=== PATIENT | female | born 1935 | race Caucasian/White ===

== ENCOUNTER 2020-07-19 14:20 | Inpatient (IN) | payer MEDICARE ==
[~2020-07-19] VITALS: Ht 162.6 cm; Wt 54.7 kg
--- NOTE | 2020-07-19 15:10 | RAD ---
XR CHEST 1V History: Reason: chest pain / Spl. Instructions: / History: Comparison: None. Findings: Hyperinflation. No consolidation or pleural effusion. Normal heart size. Impression: 1. No acute cardiopulmonary process. 2. Hyperinflation. Electronically signed by: Bruce Fam DO (07/19/2020 3:08 PM) [id number]
[2020-07-19 15:14] LABS: BASO # 0.1 x10^3/uL (0.0-0.2); BASO % 1 % (0-3); EOS % 0 % (0-3); HEMATOCRIT 46.4 % (36.0-47.0); HEMOGLOBIN 15.6 g/dL (12.0-15.5); LYMPH # 1.7 x10^3/uL (1.0-4.8); LYMPH % 22 % (24-48); MEAN CORPUSCULAR HEMOGLOBIN 32 pg (25-35); MEAN CORPUSCULAR HGB CONC 34 g/dL (31-37); MEAN CORPUSCULAR VOLUME 96 fL (79-100); MONO # 0.6 x10^3/uL (0.0-1.1); MONO % 8 % (0-9); NEUT # 5.2 x10^3/uL (1.8-7.7); NEUT % 68 % (31-73); PLATELET COUNT 172 x10^3/uL (140-400); RED BLOOD COUNT 4.84 x10^6/uL (3.50-5.40); RED CELL DISTRIBUTION WIDTH 12.8 % (11.5-14.5); WHITE BLOOD COUNT 7.7 x10^3/uL (4.0-11.0)
[2020-07-19 15:24] LABS: CALCIUM 9.8 mg/dL (8.5-10.1); GFR 52.4; POTASSIUM 3.9 mmol/L (3.5-5.1); PROTHROMBIN TIME PATIENT 13.2 SEC (11.7-14.0)
[2020-07-19 15:30] LABS: ALBUMIN 3.5 g/dL (3.4-5.0); DIRECT BILIRUBIN 0.1 mg/dL (0.0-0.2); TOTAL BILIRUBIN 0.7 mg/dL (0.2-1.0); TOTAL PROTEIN 7.5 g/dL (6.4-8.2)
--- NOTE | 2020-07-19 15:34 | PHYS DOC ---
Past Medical History Past Medical History: Dementia, Hypertension Alcohol Use: None Drug Use: None General Adult EDM: Chief Complaint: CHEST PAIN HPI: HPI: 85-year-old female presenting the [facility] today with chest pain. This all started about 48 hours ago. She is here with her daughter who is been taking care of her. Yesterday she was complaining of some chest pain intermittently that sharp nonradiating and moderate. Today she started having nausea with a few dry heaves and so her daughter was concerned so she called Paramedics who brought her in for evaluation. She is otherwise healthy other than having a mild history of hypertension. She does have dementia. Review of systems negative for abdominal pain, fevers chills headache nuchal rigidity. Positive for chest pain. Negative for shortness of breath lethargy cyanosis. Negative for dysuria or hematuria. All other review of systems negative. ED course: 85-year-old female presenting with chest pain. EKG obtained and reviewed by myself shows sinus rhythm with a regular rate. ST segments congruent. Not suggestive of acute ischemia. Blood work and chest x-ray ordered along with CT abdomen pelvis. Blood counts unremarkable. D-dimer was mildly elevated although adjusted for age D-dimer is within normal limits. CT abdomen pelvis shows a distended gallbladder. I spoke with Dr. Bryan who came and evaluated the patient. He will follow. Ultrasound ordered which shows gallstones. Chest x-ray unremarkable. We will admit the patient for serial t roponins and further monitoring of her gallstones and gallbladder. I spoke with Dr. Jose who accepts patient for admission. Heart Score: Risk Factors: Risk Factors: DM, Current or recent (<one month) smoker, HTN, HLP, family history of CAD, obesity. Risk Scores: Score 0 - 3: 2.5% MACE over next 6 weeks - Discharge Home Score 4 - 6: 20.3% MACE over next 6 weeks - Admit for Clinical Observation Score 7 - 10: 72.7% MACE over next 6 weeks - Early Invasive Strategies Allergies: Allergies: Allergies Coded Allergies Type Severity Reaction Last Updated Verified promethazine Adverse Reaction Intermediate 07/19/20 Yes Physical Exam: PE: Constitutional: Well developed, well nourished, no acute distress, non-toxic nguyen earance. [] HENT: Normocephalic, atraumatic, bilateral external ears normal, oropharynx moist, no oral exudates, nose normal. [] Eyes: PERRLA, EOMI, conjunctiva normal, no discharge. [] Neck: Normal range of motion, no tenderness, supple, no stridor. [] Cardiovascular:Heart rate regular rhythm, no murmur [] Lungs & Thorax: Bilateral breath sounds clear to auscultation [] Abdomen: Bowel sounds normal, soft, no tenderness, no masses, no pulsatile masses. [] Skin: Warm, dry, no erythema, no rash. [] Back: No tenderness, no CVA tenderness. [] Extremities: No tenderness, no cyanosis, no clubbing, ROM intact, no edema. [] Neurologic: Alert and oriented X 3, normal motor function, normal sensory function, no focal deficits noted. [] Psychologic: Affect normal, judgement normal, mood normal. [] Current Patient Data: Labs: Laboratory Tests Test 07/19/20 15:03 White Blood Count 7.7 x10^3/uL (4.0-11.0) Red Blood Count 4.84 x10^6/uL (3.50-5.40) Hemoglobin 15.6 g/dL (12.0-15.5) H Hematocrit 46.4 % (36.0-47.0) Mean Corpuscular Volume 96 fL (79-100) Mean Corpuscular Hemoglobin 32 pg (25-35) Mean Corpuscular Hemoglobin Concent 34 g/dL (31-37) Red Cell Distribution Width 12.8 % (11.5-14.5) Platelet Count 172 x10^3/uL (140-400) Neutrophils (%) (Auto) 68 % (31-73) Lymphocytes (%) (Auto) 22 % (24-48) L Monocytes (%) (Auto) 8 % (0-9) Eosinophils (%) (Auto) 0 % (0-3) Basophils (%) (Auto) 1 % (0-3) Neutrophils # (Auto) 5.2 x10^3/uL (1.8-7.7) Lymphocytes # (Auto) 1.7 x10^3/uL (1.0-4.8) Monocytes # (Auto) 0.6 x10^3/uL (0.0-1.1) Eosinophils # (Auto) 0.0 x10^3/uL (0.0-0.7) Basophils # (Auto) 0.1 x10^3/uL (0.0-0.2) Sodium Level 140 mmol/L (136-145) Potassium Level 3.9 mmol/L (3.5-5.1) Chloride Level 104 mmol/L (98-107) Carbon Dioxide Level 29 mmol/L (21-32) Anion Gap 7 (6-14) Blood Urea Nitrogen 16 mg/dL (7-20) Creatinine 1.0 mg/dL (0.6-1.0) Estimated GFR (Cockcroft-Gault) 52.4 Glucose Level 90 mg/dL (70-99) Calcium Level 9.8 mg/dL (8.5-10.1) Total Bilirubin Pending Direct Bilirubin Pending Aspartate Amino Transferase (AST) Pending Alanine Aminotransferase (ALT) Pending Alkaline Phosphatase Pending Total Protein Pending Albumin Pending Lipase Pending Laboratory Tests 07/19/20 15:03 Laboratory Tests 07/19/20 15:03 EKG: EKG: [] Radiology/Procedures: Radiology/Procedures: [] Course & Med Decision Making: Course & Med Decision Making Pertinent Labs and Imaging studies reviewed. (See chart for details) [] Dragon Disclaimer: Dragon Disclaimer: This electronic medical record was generated, in whole or in part, using a voice recognition dictation system. Departure Departure Impression: Primary Impression: Chest pain Additional Impression: Abdominal pain Disposition: ADMITTED INPT THIS HOSP Admitting Physician: CLAUDIA Condition: STABLE Referrals: NO PCP (PCP) RAHAT SHAH MD Jul 19, 2020 15:34
--- NOTE | 2020-07-19 16:15 | RAD ---
Exam: CT of abdomen and pelvis without contrast INDICATION: Nausea vomiting TECHNIQUE: Sequential axial images through the abdomen and pelvis obtained without IV contrast. Sagit kian and coronal reformatted images were reconstructed from the axial data and reviewed. Comparisons: None FINDINGS: Heart size is normal. No pericardial effusion. Visualized lung bases are clear. No pleural effusion. Liver, spleen, pancreas, and adrenals are unremarkable. Gallbladder is distended. No perinephric inflammation or hydronephrosis. No renal or ureteral calculi are identified. Bladder is partially distended and appears thin-walled. Uterus is absent. No abnormal adnexal mass. Large and small bowel are unremarkable. Appendix is normal. No free intra-abdominal air or fluid. No obstruction. Abdominal aorta has a normal course and caliber. No enlarged intra-abdominal lymph nodes are identified. No suspicious osseous lesions or acute fractures. IMPRESSION: Gallbladder is markedly distended. Correlate with symptomatology to determine the need for further ev aluation with ultrasound. Exposure: One or more of the following in the visualized dose reduction techniques were utilized for this examination: 1. Automated exposure control 2. Adjustment of the MA and/or KV according to patient size 3. Use of iterative of reconstructive technique Electronically signed by: Anamaria Pelaez MD (07/19/2020 4:13 PM) [facility]
[2020-07-19] MEDS ORDERED: IV NORMAL SALINE 1000ML BAG 1,000 ML IV SCH (16:45)
[2020-07-19] MEDS ORDERED: ONDANSETRON PF 4 MG/2 ML VIAL. IV PRN (16:45)
[2020-07-19] MEDS ORDERED: fentaNYL PF VIAL 100 MCG/2 ML VIAL IV PRN (17:15)
--- NOTE | 2020-07-19 18:14 | RAD ---
INDICATION : Reason: EVAL GALLBLADDER. NAUSEA/AMIRA NOTIFIED / Spl. Instructions: / History: COMPARISON: CT from earlier same day TECHNIQUE: Multiple ultrasound images obtained through the abdomen in grayscale and color. FINDINGS: Liver: Echotexture within normal limits in visualized portions of liver. Gallbladder: There are couple of large gallstones measuring up to 20 mm. Gallbladder is distended. So me of the internal echoes within the gallbladder could be from sludge as well. IVC: Partially distended at level of liver. Common Bile Duct: Not dilated. Pancreas: Obscured by bowel gas Right Kidney: No hydronephrosis. 49 x 40 mm cyst. IMPRESSION: * Gallbladder is distended with a couple of gallstones seen. No common bile duct dilation. Electronically signed by: Luigi Florez MD (07/19/2020 6:11 PM) [id number]
[2020-07-19 18:45] VITALS: BP 174/77
[2020-07-19] MEDS ORDERED: METO25TA4 PO (20:47)
[2020-07-19] MEDS ORDERED: MIRT15TA90 PO (20:47)
[2020-07-19] MEDS ORDERED: METO50TA6 PO (20:47)
[2020-07-19] MEDS ORDERED: METOPROLOL TART IMMED RELEASE 25 MG TABLET. PO SCH (21:00)
[2020-07-19] MEDS ORDERED: MIRTAZAPINE 15 MG TABLET PO SCH (21:00)
[2020-07-19] MEDS ORDERED: MAGNESIUM HYDROXIDE 2,400 MG/30 ML ORAL.SUSP. PO PRN (21:00)
[2020-07-19] MEDS ORDERED: ACETAMINOPHEN 325 MG TABLET. PO PRN (21:00)
[2020-07-19] MEDS ORDERED: MORPHINE SULFATE 2 MG/ML VIAL. IV PRN (21:00)
[2020-07-19] MEDS ORDERED: ONDANSETRON PF 4 MG/2 ML VIAL. IVP PRN (21:00)
[2020-07-19] MEDS ORDERED: MAG HYDROX/ALUMINUM HYD/SIMETH 30 ML ORAL.SUSP PO PRN (21:00)
[2020-07-19] MEDS ORDERED: CALCIUM CARBONATE 500 MG TAB.CHEW PO PRN (21:00)
[2020-07-19] MEDS ORDERED: BISACODYL 10 MG SUPP.RECT. PR PRN (21:00)
--- NOTE | 2020-07-19 21:16 | PDOC1 ---
History and Physical Date of Admission Date of Admission DATE: 07/19/20 TIME: 20:49 Identification/Chief Complaint Chief Complaint Chest pain Source Source: Caregiver, Patient History of Present Illness History of Present Illness Patient is 85-year-old female with past medical history A. fib, hypertension, Alzheimer's, who presents to the ER with complaint of intermittent chest pain since yesterday. Symptoms worsened today around 2:00 PM, with associated nausea. Patient lives with daughter, who brings her to the ER for concern of her symptoms. Labs and EKG unremarkable, except for slightly elevated D-dimer at 0.83. Initial troponin <0.017. CTA chest was obtained in the ER that was negative for PE but showed markedly distended gallbladder. This was followed up by right upper quadrant ultrasound. Nondistended gallbladder with a couple of gallstones seen. No common bile duct dilation. Will admit patient for further work-up and medical management Past Medical History Cardiovascular: AFIB, HTN CENTRAL NERVOUS SYSTEM: Dementia Endocrine: Hyperthyroidism Past Surgical History Past Surgical History Hysterectomy, partial thyroidectomy Family History Family History: Coronary Artery Disease Social History Smoke: No ALCOHOL: none Drugs: None Current Problem List Problem List Problems Medical Problems: (1) Abdominal pain Status: Acute (2) Chest pain Status: Acute (3) Nausea Status: Acute Current Medications Current Medications Current Medications Ondansetron HCl (Zofran) 4 mg PRN Q8HRS PRN IV NAUSEA/VOMITING Last administered on 07/19/20at 17:40; Start 07/19/20 at 16:45; Stop 07/20/20 at 16:44 Sodium Chloride 1,000 ml @ 90 mls/hr Q11H7M IV Last administered on 07/19/20at 17:34; Start 07/19/20 at 16:45; Stop 07/19/20 at 20:44; Status DC Fentanyl Citrate (Fentanyl 2ml Vial) 25 mcg 1X PRN PRN IV SEVERE PAIN 7-10 Last administered on 07/19/20at 17:37; Start 07/19/20 at 17:15; Stop 07/19/20 at 17:40; Status DC Active Scripts Active Reported Mirtazapine 15 Mg Tab.rapdis 1 Tab PO QHS 30 Days Metoprolol Tartrate 50 Mg Tablet 1 Tab PO DAILY Metoprolol Tartrate 25 Mg Tablet 1 Tab PO HS Allergies Allergies: Coded Allergies: promethazine (Verified Adverse Reaction, Intermediate, 07/19/20) "MAKES HER KICK LIKE SHE'S ON A BICYCLE" ROS Review of System GENERAL: No history of weight change, weakness or fevers. SKIN: No bruising, hair changes or rashes. EYES: No blurred, double or loss of vision. NOSE AND THROAT: No history of nosebleeds, hoarseness or sore throat. HEART: Chest pain. Denies palpitations. LUNGS: Denies cough, hemoptysis, wheezing or shortness of breath. GASTROINTESTINAL: Nausea. Denies vomiting, abdominal pain. GENITOURINARY: Denies dysuria, frequency, urgency, hematuria. NEUROLOGIC: Denies history of numbness, tingling, tremor or weakness. PSYCHIATRIC: Denies anxiety, denies depression. ENDOCRINE: No history of heat or cold intolerance, polyuria or polydipsia. EXTREMITIES: Denies muscle weakness, joint pain, pain on walking or stiffness. Physical Exam Physical Exam General: Alert, Oriented X3, Cooperative, No acute distress HEENT: PERRLA, EOMI Lungs: Clear to auscultation, Normal air movement Heart: RRR, no murmurs Cardiovascular: S1, S2 Abdomen: Normal bowel sounds, Soft. Extremities: No clubbing, No cyanosis Skin: No rashes, No significant lesion Neuro: Normal speech, Normal tone, Sensation intact Psych/Mental Status: Mental status NL, Mood NL Vitals Vitals Vital Signs Date Time Temp Pulse Resp B/P (MAP) Pulse Ox O2 Delivery O2 Flow Rate FiO2 07/19/20 20:11 Room Air 07/19/20 18:45 98.0 67 18 174/77 (109) 98 98.0 Labs Labs Laboratory Tests Test 07/19/20 15:03 White Blood Count 7.7 x10^3/uL (4.0-11.0) Red Blood Count 4.84 x10^6/uL (3.50-5.40) Hemoglobin 15.6 g/dL (12.0-15.5) Hematocrit 46.4 % (36.0-47.0) Mean Corpuscular Volume 96 fL (79-100) Mean Corpuscular Hemoglobin 32 pg (25-35) Mean Corpuscular Hemoglobin Concent 34 g/dL (31-37) Red Cell Distribution Width 12.8 % (11.5-14.5) Platelet Count 172 x10^3/uL (140-400) Neutrophils (%) (Auto) 68 % (31-73) Lymphocytes (%) (Auto) 22 % (24-48) Monocytes (%) (Auto) 8 % (0-9) Eosinophils (%) (Auto) 0 % (0-3) Basophils (%) (Auto) 1 % (0-3) Neutrophils # (Auto) 5.2 x10^3/uL (1.8-7.7) Lymphocytes # (Auto) 1.7 x10^3/uL (1.0-4.8) Monocytes # (Auto) 0.6 x10^3/uL (0.0-1.1) Eosinophils # (Auto) 0.0 x10^3/uL (0.0-0.7) Basophils # (Auto) 0.1 x10^3/uL (0.0-0.2) Prothrombin Time 13.2 SEC (11.7-14.0) Prothromb Time International Ratio 1.0 (0.8-1.1) Activated Partial Thromboplast Time 24 SEC (24-38) D-Dimer (Suzan) 0.83 ug/mlFEU (0.00-0.50) Sodium Level 140 mmol/L (136-145) Potassium Level 3.9 mmol/L (3.5-5.1) Chloride Level 104 mmol/L (98-107) Carbon Dioxide Level 29 mmol/L (21-32) Anion Gap 7 (6-14) Blood Urea Nitrogen 16 mg/dL (7-20) Creatinine 1.0 mg/dL (0.6-1.0) Estimated GFR (Cockcroft-Gault) 52.4 Glucose Level 90 mg/dL (70-99) Calcium Level 9.8 mg/dL (8.5-10.1) Total Bilirubin 0.7 mg/dL (0.2-1.0) Direct Bilirubin 0.1 mg/dL (0.0-0.2) Aspartate Amino Transf (AST/SGOT) 19 U/L (15-37) Alanine Aminotransferase (ALT/SGPT) 19 U/L (14-59) Alkaline Phosphatase 65 U/L (46-116) Troponin I Quantitative < 0.017 ng/mL (0.000-0.055) XJ-Zry-P-Type Natriuretic Peptide 444 pg/mL (0-449) Total Protein 7.5 g/dL (6.4-8.2) Albumin 3.5 g/dL (3.4-5.0) Lipase 238 U/L (73-393) Laboratory Tests Test 07/19/20 15:03 White Blood Count 7.7 x10^3/uL (4.0-11.0) Red Blood Count 4.84 x10^6/uL (3.50-5.40) Hemoglobin 15.6 g/dL (12.0-15.5) Hematocrit 46.4 % (36.0-47.0) Mean Corpuscular Volume 96 fL (79-100) Mean Corpuscular Hemoglobin 32 pg (25-35) Mean Corpuscular Hemoglobin Concent 34 g/dL (31-37) Red Cell Distribution Width 12.8 % (11.5-14.5) Platelet Count 172 x10^3/uL (140-400) Neutrophils (%) (Auto) 68 % (31-73) Lymphocytes (%) (Auto) 22 % (24-48) Monocytes (%) (Auto) 8 % (0-9) Eosinophils (%) (Auto) 0 % (0-3) Basophils (%) (Auto) 1 % (0-3) Neutrophils # (Auto) 5.2 x10^3/uL (1.8-7.7) Lymphocytes # (Auto) 1.7 x10^3/uL (1.0-4.8) Monocytes # (Auto) 0.6 x10^3/uL (0.0-1.1) Eosinophils # (Auto) 0.0 x10^3/uL (0.0-0.7) Basophils # (Auto) 0.1 x10^3/uL (0.0-0.2) Prothrombin Time 13.2 SEC (11.7-14.0) Prothromb Time International Ratio 1.0 (0.8-1.1) Activated Partial Thromboplast Time 24 SEC (24-38) D-Dimer (Suzan) 0.83 ug/mlFEU (0.00-0.50) Sodium Level 140 mmol/L (136-145) Potassium Level 3.9 mmol/L (3.5-5.1) Chloride Level 104 mmol/L (98-107) Carbon Dioxide Level 29 mmol/L (21-32) Anion Gap 7 (6-14) Blood Urea Nitrogen 16 mg/dL (7-20) Creatinine 1.0 mg/dL (0.6-1.0) Estimated GFR (Cockcroft-Gault) 52.4 Glucose Level 90 mg/dL (70-99) Calcium Level 9.8 mg/dL (8.5-10.1) Total Bilirubin 0.7 mg/dL (0.2-1.0) Direct Bilirubin 0.1 mg/dL (0.0-0.2) Aspartate Amino Transf (AST/SGOT) 19 U/L (15-37) Alanine Aminotransferase (ALT/SGPT) 19 U/L (14-59) Alkaline Phosphatase 65 U/L (46-116) Troponin I Quantitative < 0.017 ng/mL (0.000-0.055) IZ-Aqp-U-Type Natriuretic Peptide 444 pg/mL (0-449) Total Protein 7.5 g/dL (6.4-8.2) Albumin 3.5 g/dL (3.4-5.0) Lipase 238 U/L (73-393) Images Images XR CHEST 1V History: Reason: chest pain / Spl. Instructions: / History: Comparison: None. Findings: Hyperinflation. No consolidation or pleural effusion. Normal heart size. Impression: 1. No acute cardiopulmonary process. 2. Hyperinflation. Exam: CT of abdomen and pelvis without contrast INDICATION: Nausea vomiting TECHNIQUE: Sequential axial images through the abdomen and pelvis obtained without IV contrast. Sagittal and coronal reformatted images were reconstructed from the axial data and reviewed. Comparisons: None FINDINGS: Heart size is normal. No pericardial effusion. Visualized lung bases are clear. No pleural effusion. Liver, spleen, pancreas, and adrenals are unremarkable. Gallbladder is distended. No perinephric inflammation or hydronephrosis. No renal or ureteral calculi are identified. Bladder is partially distended and appears thin-walled. Uterus is absent. No abnormal adnexal mass. Large and small bowel are unremarkable. Appendix is normal. No free intra- abdominal air or fluid. No obstruction. Abdominal aorta has a normal course and caliber. No enlarged intra-abdominal lymph nodes are identified. No suspicious osseous lesions or acute fractures. IMPRESSION: Gallbladder is markedly distended. Correlate with symptomatology to determine the need for further evaluation with ultrasound. Exposure: One or more of the following in the visualized dose reduction techniques were utilized for this examination: 1. Automated exposure control 2. Adjustment of the MA and/or KV according to patient size 3. Use of iterative of reconstructive technique XR CHEST 1V History: Reason: chest pain / Spl. Instructions: / History: Comparison: None. Findings: Hyperinflation. No consolidation or pleural effusion. Normal heart size. Impression: 1. No acute cardiopulmonary process. 2. Hyperinflation. VTE Prophylaxis Ordered VTE Prophylaxis Devices: No VTE Pharmacological Prophylaxi: Yes Assessment/Plan Assessment/Plan Chest pain Hypertension Cholelithiasis Elevated D-dimer Plan: Initial troponin 0.017; will continue to trend Consult to cardiology; appreciate their expertise during the management of this patient Morphine, nitroglycerin as needed Ultrasound right upper quadrant showed enlarged gallbladder with cholelithiasis; consultation placed to general surgery and GI. Age-adjusted D-dimer within normal limits, DVT unlikely. Resume home medications FEN - Cardiac diet PPX - Heparin FULL CODE Dispo - inpatient for above Justifications for Admission Other Justification YUE POLLOCK MD Jul 19, 2020 21:16
[2020-07-19] MEDS: HEPARIN for SUB-Q USE 5,000 UNIT/ML VIAL. SQ SCH (22:01)
[2020-07-19 23:59] VITALS: BP 109/67
[2020-07-20 03:25] LABS: BASO % 0 % (0-3); EOS % 0 % (0-3); HEMATOCRIT 45.5 % (36.0-47.0); HEMOGLOBIN 15.3 g/dL (12.0-15.5); LYMPH # 1.9 x10^3/uL (1.0-4.8); LYMPH % 30 % (24-48); MEAN CORPUSCULAR HEMOGLOBIN 33 pg (25-35); MEAN CORPUSCULAR HGB CONC 34 g/dL (31-37); MEAN CORPUSCULAR VOLUME 97 fL (79-100); MONO # 0.6 x10^3/uL (0.0-1.1); MONO % 10 % (0-9); NEUT # 3.6 x10^3/uL (1.8-7.7); NEUT % 59 % (31-73); PLATELET COUNT 173 x10^3/uL (140-400); RED CELL DISTRIBUTION WIDTH 12.9 % (11.5-14.5); WHITE BLOOD COUNT 6.1 x10^3/uL (4.0-11.0)
[2020-07-20 03:38] VITALS: BP 151/78
[2020-07-20 03:52] LABS: CALCIUM 9.3 mg/dL (8.5-10.1); CREATININE 1.4 mg/dL (0.6-1.0); GFR 35.6; POTASSIUM 4.1 mmol/L (3.5-5.1)
[2020-07-20 07:00] VITALS: BP 184/91
[2020-07-20] MEDS ORDERED: METOPROLOL TART IMMED RELEASE 50 MG TABLET. PO SCH (09:00)
[2020-07-20] MEDS: HEPARIN for SUB-Q USE 5,000 UNIT/ML VIAL. SQ SCH (09:00)
[2020-07-20 11:00] VITALS: BP 148/87
--- NOTE | 2020-07-20 12:23 | PDOC2 ---
GI CONSULT Date of Service: DATE: 07/20/20 TIME: 12:09 Reason For Consult: Enlarged GB HPI: HPI: Pleasant 85 y/o female seen with daughter. Has Alzheimer's, so questionable historian. Daughter helps. Apparently having some intermittent chest discomfort 07/19; per daughter, not with diaphoresis or SOA. Worsened with one episode of N and V and came to ER. No abdominal pain. Currently pain-free. No past similar episodes. Imaging with hydropic GB with stones and we were asked to see. Some occasional heartburn in the past w/o dysphagia. No PUD, liver or pancreatic history. No tobacco or alcohol use. Occasional loose or firm stools. No overt bleeding. Denies prior endoscopy. Some mild weight loss. Eats OK. PMH: PMH: Alzheimer's, HTN, Afib, Anxiety. S/p partial thyroidectomy, hysterectomy, excise skin cancer. Social History: Smoke: No ALCOHOL: none Drugs: None ROS: GEN: Denies fevers, chills, sweats HEENT: Denies blurred vision, sore throat CV: Denies chest pain RESP: Denies shortness of air, cough GI: Per HPI : Denies hematuria, dysuria ENDO: Denies weight changes NEURO: Denies confusion, dizziness MSK: Denies weakness, joint pain/swelling SKIN: Denies jaundice, pruritus --though with some dementia, unclear veracity. Vitals: Vitals: Vital Signs Date Time Temp Pulse Resp B/P (MAP) Pulse Ox O2 Delivery O2 Flow Rate FiO2 07/20/20 08:06 69 151/78 07/20/20 08:00 Room Air 07/20/20 07:00 97.3 16 97 97.3 Labs: Labs: Laboratory Tests Test 07/19/20 15:03 07/19/20 20:44 07/20/20 00:30 White Blood Count 7.7 x10^3/uL (4.0-11.0) 6.1 x10^3/uL (4.0-11.0) Red Blood Count 4.84 x10^6/uL (3.50-5.40) 4.70 x10^6/uL (3.50-5.40) Hemoglobin 15.6 g/dL (12.0-15.5) 15.3 g/dL (12.0-15.5) Hematocrit 46.4 % (36.0-47.0) 45.5 % (36.0-47.0) Mean Corpuscular Volume 96 fL (79-100) 97 fL (79-100) Mean Corpuscular Hemoglobin 32 pg (25-35) 33 pg (25-35) Mean Corpuscular Hemoglobin Concent 34 g/dL (31-37) 34 g/dL (31-37) Red Cell Distribution Width 12.8 % (11.5-14.5) 12.9 % (11.5-14.5) Platelet Count 172 x10^3/uL (140-400) 173 x10^3/uL (140-400) Neutrophils (%) (Auto) 68 % (31-73) 59 % (31-73) Lymphocytes (%) (Auto) 22 % (24-48) 30 % (24-48) Monocytes (%) (Auto) 8 % (0-9) 10 % (0-9) Eosinophils (%) (Auto) 0 % (0-3) 0 % (0-3) Basophils (%) (Auto) 1 % (0-3) 0 % (0-3) Neutrophils # (Auto) 5.2 x10^3/uL (1.8-7.7) 3.6 x10^3/uL (1.8-7.7) Lymphocytes # (Auto) 1.7 x10^3/uL (1.0-4.8) 1.9 x10^3/uL (1.0-4.8) Monocytes # (Auto) 0.6 x10^3/uL (0.0-1.1) 0.6 x10^3/uL (0.0-1.1) Eosinophils # (Auto) 0.0 x10^3/uL (0.0-0.7) 0.0 x10^3/uL (0.0-0.7) Basophils # (Auto) 0.1 x10^3/uL (0.0-0.2) 0.0 x10^3/uL (0.0-0.2) Prothrombin Time 13.2 SEC (11.7-14.0) Prothromb Time International Ratio 1.0 (0.8-1.1) Activated Partial Thromboplast Time 24 SEC (24-38) D-Dimer (Suzan) 0.83 ug/mlFEU (0.00-0.50) Sodium Level 140 mmol/L (136-145) 143 mmol/L (136-145) Potassium Level 3.9 mmol/L (3.5-5.1) 4.1 mmol/L (3.5-5.1) Chloride Level 104 mmol/L (98-107) 104 mmol/L (98-107) Carbon Dioxide Level 29 mmol/L (21-32) 31 mmol/L (21-32) Anion Gap 7 (6-14) 8 (6-14) Blood Urea Nitrogen 16 mg/dL (7-20) 24 mg/dL (7-20) Creatinine 1.0 mg/dL (0.6-1.0) 1.4 mg/dL (0.6-1.0) Estimated GFR (Cockcroft-Gault) 52.4 35.6 Glucose Level 90 mg/dL (70-99) 99 mg/dL (70-99) Calcium Level 9.8 mg/dL (8.5-10.1) 9.3 mg/dL (8.5-10.1) Total Bilirubin 0.7 mg/dL (0.2-1.0) Direct Bilirubin 0.1 mg/dL (0.0-0.2) Aspartate Amino Transf (AST/SGOT) 19 U/L (15-37) Alanine Aminotransferase (ALT/SGPT) 19 U/L (14-59) Alkaline Phosphatase 65 U/L (46-116) Troponin I Quantitative < 0.017 ng/mL (0.000-0.055) < 0.017 ng/mL (0.000-0.055) < 0.017 ng/mL (0.000-0.055) SU-Khs-H-Type Natriuretic Peptide 444 pg/mL (0-449) Total Protein 7.5 g/dL (6.4-8.2) Albumin 3.5 g/dL (3.4-5.0) Lipase 238 U/L (73-393) Allergies: Coded Allergies: promethazine (Verified Adverse Reaction, Intermediate, 07/19/20) "MAKES HER KICK LIKE SHE'S ON A BICYCLE" Medications: Current Medications Medications (Trade) Dose Ordered Sig/Camron Route PRN Reason Start Time Stop Time Status Last Admin Dose Admin Ondansetron HCl (Zofran) 4 mg PRN Q8HRS PRN IV NAUSEA/VOMITING 07/19/20 16:45 07/19/20 21:28 DC 07/19/20 17:40 Sodium Chloride 1,000 ml @ 90 mls/hr Q11H7M IV 07/19/20 16:45 07/19/20 20:44 DC 07/19/20 17:34 Fentanyl Citrate (Fentanyl 2ml Vial) 25 mcg 1X PRN PRN IV SEVERE PAIN 7-10 07/19/20 17:15 07/19/20 17:40 DC 07/19/20 17:37 Metoprolol Tartrate (Lopressor) 25 mg HS PO 07/19/20 21:00 07/19/20 21:16 Metoprolol Tartrate (Lopressor) 50 mg DAILY PO 07/20/20 09:00 07/20/20 08:06 Mirtazapine (Remeron) 15 mg QHS PO 07/19/20 21:00 07/19/20 21:16 Heparin Sodium (Porcine) (Heparin Sodium) 5,000 unit Q12HR SQ 07/19/20 21:30 07/19/20 22:01 Imaging: Imaging: Reviewed. PE: GEN: NAD HEENT: Atraumatic, PERRLA LUNGS: CTAB HEART: RRR, no murmurs ABD: NABS, S/ND/NT, no masses EXTREMITY: No edema SKIN: No rashes, no jaundice NEURO/PSYCH: A & O 3 A/P: A/P: IMP: Chest pain. Some occasional dyspepsia; this the cause? Can't r/o biliary colic, but atypical history. Certainly no reason to suspect cholecystitis. Currently fine. REC: PO PPI empirically. Observe. Would not push strongly for cholecystectomy. OK to feed if not eating. MARYANA CLEMONS MD Jul 20, 2020 12:23
--- NOTE | 2020-07-20 13:56 | PDOC3 ---
Discharge Summary Visit Information Date of Admission: Jul 19, 2020 Date of Discharge: Jul 20, 2020 Final Diagnosis Chest pain Hypertension Cholelithiasis Elevated D-dimer alzheimers disease, dementia Problems Medical Problems: (1) Abdominal pain Status: Acute (2) Chest pain Status: Acute (3) Nausea Status: Acute Brief Hospital Course Allergies Allergies Coded Allergies Type Severity Reaction Last Updated Verified promethazine Adverse Reaction Intermediate 07/19/20 Yes Vital Signs Vital Signs Date Time Temp Pulse Resp B/P (MAP) Pulse Ox O2 Delivery O2 Flow Rate FiO2 07/20/20 11:00 97.8 77 16 148/87 (107) 97 Room Air 97.8 Lab Results Laboratory Tests Test 07/19/20 15:03 07/19/20 20:44 07/20/20 00:30 White Blood Count 7.7 x10^3/uL (4.0-11.0) 6.1 x10^3/uL (4.0-11.0) Red Blood Count 4.84 x10^6/uL (3.50-5.40) 4.70 x10^6/uL (3.50-5.40) Hemoglobin 15.6 g/dL (12.0-15.5) 15.3 g/dL (12.0-15.5) Hematocrit 46.4 % (36.0-47.0) 45.5 % (36.0-47.0) Mean Corpuscular Volume 96 fL (79-100) 97 fL (79-100) Mean Corpuscular Hemoglobin 32 pg (25-35) 33 pg (25-35) Mean Corpuscular Hemoglobin Concent 34 g/dL (31-37) 34 g/dL (31-37) Red Cell Distribution Width 12.8 % (11.5-14.5) 12.9 % (11.5-14.5) Platelet Count 172 x10^3/uL (140-400) 173 x10^3/uL (140-400) Neutrophils (%) (Auto) 68 % (31-73) 59 % (31-73) Lymphocytes (%) (Auto) 22 % (24-48) 30 % (24-48) Monocytes (%) (Auto) 8 % (0-9) 10 % (0-9) Eosinophils (%) (Auto) 0 % (0-3) 0 % (0-3) Basophils (%) (Auto) 1 % (0-3) 0 % (0-3) Neutrophils # (Auto) 5.2 x10^3/uL (1.8-7.7) 3.6 x10^3/uL (1.8-7.7) Lymphocytes # (Auto) 1.7 x10^3/uL (1.0-4.8) 1.9 x10^3/uL (1.0-4.8) Monocytes # (Auto) 0.6 x10^3/uL (0.0-1.1) 0.6 x10^3/uL (0.0-1.1) Eosinophils # (Auto) 0.0 x10^3/uL (0.0-0.7) 0.0 x10^3/uL (0.0-0.7) Basophils # (Auto) 0.1 x10^3/uL (0.0-0.2) 0.0 x10^3/uL (0.0-0.2) Prothrombin Time 13.2 SEC (11.7-14.0) Prothromb Time International Ratio 1.0 (0.8-1.1) Activated Partial Thromboplast Time 24 SEC (24-38) D-Dimer (Suzan) 0.83 ug/mlFEU (0.00-0.50) Sodium Level 140 mmol/L (136-145) 143 mmol/L (136-145) Potassium Level 3.9 mmol/L (3.5-5.1) 4.1 mmol/L (3.5-5.1) Chloride Level 104 mmol/L (98-107) 104 mmol/L (98-107) Carbon Dioxide Level 29 mmol/L (21-32) 31 mmol/L (21-32) Anion Gap 7 (6-14) 8 (6-14) Blood Urea Nitrogen 16 mg/dL (7-20) 24 mg/dL (7-20) Creatinine 1.0 mg/dL (0.6-1.0) 1.4 mg/dL (0.6-1.0) Estimated GFR (Cockcroft-Gault) 52.4 35.6 Glucose Level 90 mg/dL (70-99) 99 mg/dL (70-99) Calcium Level 9.8 mg/dL (8.5-10.1) 9.3 mg/dL (8.5-10.1) Total Bilirubin 0.7 mg/dL (0.2-1.0) Direct Bilirubin 0.1 mg/dL (0.0-0.2) Aspartate Amino Transf (AST/SGOT) 19 U/L (15-37) Alanine Aminotransferase (ALT/SGPT) 19 U/L (14-59) Alkaline Phosphatase 65 U/L (46-116) Troponin I Quantitative < 0.017 ng/mL (0.000-0.055) < 0.017 ng/mL (0.000-0.055) < 0.017 ng/mL (0.000-0.055) PG-Kdj-L-Type Natriuretic Peptide 444 pg/mL (0-449) Total Protein 7.5 g/dL (6.4-8.2) Albumin 3.5 g/dL (3.4-5.0) Lipase 238 U/L (73-393) Laboratory Tests Test 07/19/20 15:03 07/19/20 20:44 07/20/20 00:30 White Blood Count 7.7 x10^3/uL (4.0-11.0) 6.1 x10^3/uL (4.0-11.0) Red Blood Count 4.84 x10^6/uL (3.50-5.40) 4.70 x10^6/uL (3.50-5.40) Hemoglobin 15.6 g/dL (12.0-15.5) 15.3 g/dL (12.0-15.5) Hematocrit 46.4 % (36.0-47.0) 45.5 % (36.0-47.0) Mean Corpuscular Volume 96 fL (79-100) 97 fL (79-100) Mean Corpuscular Hemoglobin 32 pg (25-35) 33 pg (25-35) Mean Corpuscular Hemoglobin Concent 34 g/dL (31-37) 34 g/dL (31-37) Red Cell Distribution Width 12.8 % (11.5-14.5) 12.9 % (11.5-14.5) Platelet Count 172 x10^3/uL (140-400) 173 x10^3/uL (140-400) Neutrophils (%) (Auto) 68 % (31-73) 59 % (31-73) Lymphocytes (%) (Auto) 22 % (24-48) 30 % (24-48) Monocytes (%) (Auto) 8 % (0-9) 10 % (0-9) Eosinophils (%) (Auto) 0 % (0-3) 0 % (0-3) Basophils (%) (Auto) 1 % (0-3) 0 % (0-3) Neutrophils # (Auto) 5.2 x10^3/uL (1.8-7.7) 3.6 x10^3/uL (1.8-7.7) Lymphocytes # (Auto) 1.7 x10^3/uL (1.0-4.8) 1.9 x10^3/uL (1.0-4.8) Monocytes # (Auto) 0.6 x10^3/uL (0.0-1.1) 0.6 x10^3/uL (0.0-1.1) Eosinophils # (Auto) 0.0 x10^3/uL (0.0-0.7) 0.0 x10^3/uL (0.0-0.7) Basophils # (Auto) 0.1 x10^3/uL (0.0-0.2) 0.0 x10^3/uL (0.0-0.2) Prothrombin Time 13.2 SEC (11.7-14.0) Prothromb Time International Ratio 1.0 (0.8-1.1) Activated Partial Thromboplast Time 24 SEC (24-38) D-Dimer (Suzan) 0.83 ug/mlFEU (0.00-0.50) Sodium Level 140 mmol/L (136-145) 143 mmol/L (136-145) Potassium Level 3.9 mmol/L (3.5-5.1) 4.1 mmol/L (3.5-5.1) Chloride Level 104 mmol/L (98-107) 104 mmol/L (98-107) Carbon Dioxide Level 29 mmol/L (21-32) 31 mmol/L (21-32) Anion Gap 7 (6-14) 8 (6-14) Blood Urea Nitrogen 16 mg/dL (7-20) 24 mg/dL (7-20) Creatinine 1.0 mg/dL (0.6-1.0) 1.4 mg/dL (0.6-1.0) Estimated GFR (Cockcroft-Gault) 52.4 35.6 Glucose Level 90 mg/dL (70-99) 99 mg/dL (70-99) Calcium Level 9.8 mg/dL (8.5-10.1) 9.3 mg/dL (8.5-10.1) Total Bilirubin 0.7 mg/dL (0.2-1.0) Direct Bilirubin 0.1 mg/dL (0.0-0.2) Aspartate Amino Transf (AST/SGOT) 19 U/L (15-37) Alanine Aminotransferase (ALT/SGPT) 19 U/L (14-59) Alkaline Phosphatase 65 U/L (46-116) Troponin I Quantitative < 0.017 ng/mL (0.000-0.055) < 0.017 ng/mL (0.000-0.055) < 0.017 ng/mL (0.000-0.055) GN-Bzp-P-Type Natriuretic Peptide 444 pg/mL (0-449) Total Protein 7.5 g/dL (6.4-8.2) Albumin 3.5 g/dL (3.4-5.0) Lipase 238 U/L (73-393) Brief Hospital Course Ms. Vargas is a 85 old demented female, admit for chest pain, likely chronic charity, GI consult - would not rec surgery as risks high. CV consult for angina, trend neg, risk low, DC home, Discharge Information Condition at Discharge: Improved Follow Up: Weeks Disposition/Orders: D/C to Home Scheduled Metoprolol Tartrate (Metoprolol Tartrate) 25 Mg Tablet, 1 TAB PO HS for HEART RATE, #180 Ref 1 (Reported) Entered as Reported by: Andrés Gordon on 07/19/202046 Last Action: Continued on 07/19/202052 by Andrés Gordon Metoprolol Tartrate (Metoprolol Tartrate) 50 Mg Tablet, 1 TAB PO DAILY for HEART RATE, #60 Ref 5 (Reported) Entered as Reported by: Andrés Gordon on 07/19/202046 Last Action: Continued on 07/19/202052 by Andrés Gordon Mirtazapine (Mirtazapine) 15 Mg Tab.rapdis, 1 TAB PO QHS for anxiety for 30 Days, #30 Ref 0 (Reported) Entered as Reported by: Andrés Gordon on 07/19/202046 Last Action: Converted on 07/19/202052 by Andrés Gordon Patient Instructions Patient Instructions face to face with patient and daughter total time 35 min Justicifation of Admission Dx: Justifications for Admission: Justification of Admission Dx: No GONZALES MORENO MD Jul 20, 2020 13:56
--- NOTE | 2020-07-20 14:34 | NUR ---
DISCHARGED PATIENT TO HOME. DISCHARGE INSTRUCTIONS GIVEN. PIV AND HEART MONITOR REMOVED. ESCORTED PATIENT OFF UNIT PER WHEELCHAIR INTO A PRIVATE VEHICLE.
--- NOTE | 2020-07-20 15:49 | PDOC2 ---
CONSULT Date of Consult Date of Consult DATE: 07/20/20 TIME: 15:44 Reason for Consult Reason for Consult: Chest pain Referring Physician Referring Physician: Dr. Rojas Identification/Chief Complaint Chief Complaint Chest and abdominal pain Source Source: Chart review, Patient History of Present Illness Reason for Visit: The patient is an 85-year-old female who was admitted through the emergency room yet yesterday for 2 days of chest pressure and mild abdominal pain with nausea. The patient has a history of hypertension and Alzheimer's dementia. EKG showed no acute ischemic changes. Troponins have been negative x3. A CT scan of the abdomen pelvis showed a distended gallbladder. An ultrasound was performed and showed gallstones. The patient has been seen by the GI service. She is now comfortable. She denies chest pain, shortness of breath, dizziness or lightheadedness. Past Medical History Cardiovascular: AFIB, HTN CENTRAL NERVOUS SYSTEM: Dementia Endocrine: Hyperthyroidism Past Surgical History Past Surgical History: Hysterectomy, Other (Partial thyroidectomy) Family History Family History: Coronary Artery Disease Social History No ALCOHOL: none Drugs: None Current Problem List Problem List Problems Medical Problems: (1) Abdominal pain Status: Acute (2) Chest pain Status: Acute (3) Nausea Status: Acute Current Medications Current Medications Current Medications Ondansetron HCl (Zofran) 4 mg PRN Q8HRS PRN IV NAUSEA/VOMITING Last administered on 07/19/20at 17:40; Start 07/19/20 at 16:45; Stop 07/19/20 at 21:28; Status DC Sodium Chloride 1,000 ml @ 90 mls/hr Q11H7M IV Last administered on 07/19/20at 17:34; Start 07/19/20 at 16:45; Stop 07/19/20 at 20:44; Status DC Fentanyl Citrate (Fentanyl 2ml Vial) 25 mcg 1X PRN PRN IV SEVERE PAIN 7-10 Last administered on 07/19/20at 17:37; Start 07/19/20 at 17:15; Stop 07/19/20 at 17:40; Status DC Metoprolol Tartrate (Lopressor) 25 mg HS PO Last administered on 07/19/20at 21:16; Start 07/19/20 at 21:00; Stop 07/20/20 at 15:36; Status DC Metoprolol Tartrate (Lopressor) 50 mg DAILY PO Last administered on 07/20/20at 08:06; Start 07/20/20 at 09:00; Stop 07/20/20 at 15:36; Status DC Mirtazapine (Remeron) 15 mg QHS PO Last administered on 07/19/20at 21:16; Start 07/19/20 at 21:00; Stop 07/20/20 at 15:36; Status DC Ondansetron HCl (Zofran) 4 mg PRN Q6HRS PRN IVP NAUSEA/VOMITING; Start 07/19/20 at 21:00; Stop 07/20/20 at 15:36; Status DC Al Hydroxide/Mg Hydroxide (Mylanta Plus Xs) 30 ml PRN Q3HRS PRN PO HEARTBURN / GAS; Start 07/19/20 at 21:00; Stop 07/20/20 at 15:36; Status DC Calcium Carbonate/ Glycine (Tums) 500 mg PRN Q3HRS PRN PO UPSET STOMACH; Start 07/19/20 at 21:00; Stop 07/20/20 at 15:36; Status DC Morphine Sulfate (Morphine Sulfate) 2 mg PRN Q1HR PRN IV PAIN; Start 07/19/20 at 21:00; Stop 07/20/20 at 15:36; Status DC Acetaminophen (Tylenol) 650 mg PRN Q6HRS PRN PO Headaches, Temp > 101.5F; Start 07/19/20 at 21:00; Stop 07/20/20 at 15:36; Status DC Magnesium Hydroxide (Milk Of Magnesia) 2,400 mg PRN Q12HR PRN PO CONSTIPATION; Start 07/19/20 at 21:00; Stop 07/20/20 at 15:36; Status DC Bisacodyl (Dulcolax Supp) [address] CONSTIPATION; Start 07/19/20 at 21:00; Stop 07/20/20 at 15:36; Status DC Heparin Sodium (Porcine) (Heparin Sodium) 5,000 unit Q12HR SQ Last administered on 07/19/20at 22:01; Start 07/19/20 at 21:30; Stop 07/20/20 at 15:36; Status DC Pantoprazole Sodium (Protonix) 40 mg DAILYAC PO ; Start 07/20/20 at 16:30; Stop 07/20/20 at 15:36; Status DC Active Scripts Active Reported Mirtazapine 15 Mg Tab.rapdis 1 Tab PO QHS 30 Days Metoprolol Tartrate 50 Mg Tablet 1 Tab PO DAILY Metoprolol Tartrate 25 Mg Tablet 1 Tab PO HS Allergies Allergies: Coded Allergies: promethazine (Verified Adverse Reaction, Intermediate, 07/19/20) "MAKES HER KICK LIKE SHE'S ON A BICYCLE" ROS General: YES: Fatigue Cardiovascular: yes Chest Pain Physical Exam General: No acute distress HEENT: Atraumatic Lungs: Clear to auscultation Heart: Regular rate Abdomen: Normal bowel sounds Vitals VITALS Vital Signs Date Time Temp Pulse Resp B/P (MAP) Pulse Ox O2 Delivery O2 Flow Rate FiO2 07/20/20 11:00 97.8 77 16 148/87 (107) 97 Room Air 97.8 Labs Labs Laboratory Tests Test 07/19/20 15:03 07/19/20 20:44 07/20/20 00:30 White Blood Count 7.7 x10^3/uL (4.0-11.0) 6.1 x10^3/uL (4.0-11.0) Red Blood Count 4.84 x10^6/uL (3.50-5.40) 4.70 x10^6/uL (3.50-5.40) Hemoglobin 15.6 g/dL (12.0-15.5) 15.3 g/dL (12.0-15.5) Hematocrit 46.4 % (36.0-47.0) 45.5 % (36.0-47.0) Mean Corpuscular Volume 96 fL (79-100) 97 fL (79-100) Mean Corpuscular Hemoglobin 32 pg (25-35) 33 pg (25-35) Mean Corpuscular Hemoglobin Concent 34 g/dL (31-37) 34 g/dL (31-37) Red Cell Distribution Width 12.8 % (11.5-14.5) 12.9 % (11.5-14.5) Platelet Count 172 x10^3/uL (140-400) 173 x10^3/uL (140-400) Neutrophils (%) (Auto) 68 % (31-73) 59 % (31-73) Lymphocytes (%) (Auto) 22 % (24-48) 30 % (24-48) Monocytes (%) (Auto) 8 % (0-9) 10 % (0-9) Eosinophils (%) (Auto) 0 % (0-3) 0 % (0-3) Basophils (%) (Auto) 1 % (0-3) 0 % (0-3) Neutrophils # (Auto) 5.2 x10^3/uL (1.8-7.7) 3.6 x10^3/uL (1.8-7.7) Lymphocytes # (Auto) 1.7 x10^3/uL (1.0-4.8) 1.9 x10^3/uL (1.0-4.8) Monocytes # (Auto) 0.6 x10^3/uL (0.0-1.1) 0.6 x10^3/uL (0.0-1.1) Eosinophils # (Auto) 0.0 x10^3/uL (0.0-0.7) 0.0 x10^3/uL (0.0-0.7) Basophils # (Auto) 0.1 x10^3/uL (0.0-0.2) 0.0 x10^3/uL (0.0-0.2) Prothrombin Time 13.2 SEC (11.7-14.0) Prothromb Time International Ratio 1.0 (0.8-1.1) Activated Partial Thromboplast Time 24 SEC (24-38) D-Dimer (Suzan) 0.83 ug/mlFEU (0.00-0.50) Sodium Level 140 mmol/L (136-145) 143 mmol/L (136-145) Potassium Level 3.9 mmol/L (3.5-5.1) 4.1 mmol/L (3.5-5.1) Chloride Level 104 mmol/L (98-107) 104 mmol/L (98-107) Carbon Dioxide Level 29 mmol/L (21-32) 31 mmol/L (21-32) Anion Gap 7 (6-14) 8 (6-14) Blood Urea Nitrogen 16 mg/dL (7-20) 24 mg/dL (7-20) Creatinine 1.0 mg/dL (0.6-1.0) 1.4 mg/dL (0.6-1.0) Estimated GFR (Cockcroft-Gault) 52.4 35.6 Glucose Level 90 mg/dL (70-99) 99 mg/dL (70-99) Calcium Level 9.8 mg/dL (8.5-10.1) 9.3 mg/dL (8.5-10.1) Total Bilirubin 0.7 mg/dL (0.2-1.0) Direct Bilirubin 0.1 mg/dL (0.0-0.2) Aspartate Amino Transf (AST/SGOT) 19 U/L (15-37) Alanine Aminotransferase (ALT/SGPT) 19 U/L (14-59) Alkaline Phosphatase 65 U/L (46-116) Troponin I Quantitative < 0.017 ng/mL (0.000-0.055) < 0.017 ng/mL (0.000-0.055) < 0.017 ng/mL (0.000-0.055) PG-Szu-I-Type Natriuretic Peptide 444 pg/mL (0-449) Total Protein 7.5 g/dL (6.4-8.2) Albumin 3.5 g/dL (3.4-5.0) Lipase 238 U/L (73-393) Laboratory Tests Test 07/19/20 20:44 07/20/20 00:30 Troponin I Quantitative < 0.017 ng/mL (0.000-0.055) < 0.017 ng/mL (0.000-0.055) White Blood Count 6.1 x10^3/uL (4.0-11.0) Red Blood Count 4.70 x10^6/uL (3.50-5.40) Hemoglobin 15.3 g/dL (12.0-15.5) Hematocrit 45.5 % (36.0-47.0) Mean Corpuscular Volume 97 fL (79-100) Mean Corpuscular Hemoglobin 33 pg (25-35) Mean Corpuscular Hemoglobin Concent 34 g/dL (31-37) Red Cell Distribution Width 12.9 % (11.5-14.5) Platelet Count 173 x10^3/uL (140-400) Neutrophils (%) (Auto) 59 % (31-73) Lymphocytes (%) (Auto) 30 % (24-48) Monocytes (%) (Auto) 10 % (0-9) Eosinophils (%) (Auto) 0 % (0-3) Basophils (%) (Auto) 0 % (0-3) Neutrophils # (Auto) 3.6 x10^3/uL (1.8-7.7) Lymphocytes # (Auto) 1.9 x10^3/uL (1.0-4.8) Monocytes # (Auto) 0.6 x10^3/uL (0.0-1.1) Eosinophils # (Auto) 0.0 x10^3/uL (0.0-0.7) Basophils # (Auto) 0.0 x10^3/uL (0.0-0.2) Sodium Level 143 mmol/L (136-145) Potassium Level 4.1 mmol/L (3.5-5.1) Chloride Level 104 mmol/L (98-107) Carbon Dioxide Level 31 mmol/L (21-32) Anion Gap 8 (6-14) Blood Urea Nitrogen 24 mg/dL (7-20) Creatinine 1.4 mg/dL (0.6-1.0) Estimated GFR (Cockcroft-Gault) 35.6 Glucose Level 99 mg/dL (70-99) Calcium Level 9.3 mg/dL (8.5-10.1) Images Images CT scan of the abdomen and pelvis showed a distended gallbladder. Ultrasound shows gallstones Assessment/Plan Assessment/Plan 1. Chest discomfort. Resolved. No acute ischemic EKG changes. Troponin negative x3. We will continue present treatments and increase activities. This was discussed with the patient and her daughter. If discharged later today we will follow-up as an outpatient. 2. Abdominal pain and nausea. Gallstones as noted above on work-up. Evaluation by the GI service. 3. Hypertension. Continue present treatment. 4. Alzheimer's dementia. We will continue present treatment. Thank you for allowing us to participate in the care of your patient. ARACELY GAYTAN MD Jul 20, 2020 15:49
[2020-07-20] MEDS ORDERED: PANTOPRAZOLE 40 MG TABLET.DR. PO SCH (16:30)
--- NOTE | 2020-07-22 09:19 | EKG ---
[facility] [address] [place] [address] Test Date: 2020-07-19 Test Time: 14:38:30 Pat Name: MARYLOU WILLAMS Department: Room: Gender: F Special Effects Person: : 1935 Requested By: RAHAT SHAH Order Number: [id number] Reading MD: Measurements Intervals Ranger Rate: 73 P: 29 RI: 234 QRS: 28 QRSD: 74 T: 64 QT: 404 QTc: 449 Interpretive Statements SINUS RHYTHM ATRIAL PREMATURE COMPLEX(ES) PROLONGED RI INTERVAL ABNORMAL ECG RI6.02 No previous ECG available for comparison
== END 2020-07-20 14:35 | disposition home or self-care (01) | DRG 446 ==
LOC: ER 14:20 → 2 NORTH 16:38
PROVIDERS: ADMIT Family Medicine; ATTEND Family Medicine
DX: K80.20 Calculus of gallbladder without cholecystitis without obstruction (principal); R07.89 Other chest pain; C44.90 Unspecified malignant neoplasm of skin, unspecified; E11.9 Type 2 diabetes mellitus without complications; E78.5 Hyperlipidemia, unspecified; F02.80 Dementia in other diseases classified elsewhere, unspecified severity, without behavioral disturbance, psychotic disturbance, mood disturbance, and anxiety; G30.9 Alzheimer's disease, unspecified; I10 Essential (primary) hypertension; I48.91 Unspecified atrial fibrillation; K82.8 Other specified diseases of gallbladder; Z82.49 Family history of ischemic heart disease and other diseases of the circulatory system; Z87.891 Personal history of nicotine dependence; Z90.710 Acquired absence of both cervix and uterus; E05.90 Thyrotoxicosis, unspecified without thyrotoxic crisis or storm; F41.9 Anxiety disorder, unspecified
CPT/HCPCS: 36415; 71045; 74176; 76705; 80048; 80076; 83690; 83880; 84484; 85025; 85379; 85610; 85730; 93005; 96361; 96374; 96375; 99285; J1644; J2405; J3010; J7030; G0378